=== PATIENT | female | born 1960 | race Two or more races ===

== ENCOUNTER 2022-06-27 06:11 | Day surgery (SDC) | payer OTHER ==
[~2022-06-27] VITALS: Ht 165.1 cm; Wt 95.3 kg
[~2022-06-27 06:11] MED LIST: CARDURA XL4 MG PO; HYZAAR 100-251 EACH PO; LYRIC PO; TRAMADO PO
== END 2022-06-27 18:25 | disposition home or self-care (01) ==
LOC: CIR.AMB 06:11
PROVIDERS: ATTEND Surgery
DX: D05.12 Intraductal carcinoma in situ of left breast (principal); D05.82 Other specified type of carcinoma in situ of left breast; R59.0 Localized enlarged lymph nodes; Z17.1 Estrogen receptor negative status [ER-]; Z42.1 Encounter for breast reconstruction following mastectomy; Z20.822 Contact with and (suspected) exposure to COVID-19
CPT/HCPCS: 19301; 19281; 19318; 38525; 78195; A9541; L8699